=== PATIENT | male | born 1975 | race Caucasian/White ===

== ENCOUNTER 2018-11-06 20:09 | Inpatient (IN) | payer BC, OTHER ==
[~2018-11-06] VITALS: Ht 170.2 cm; Wt 106.6 kg
[~2018-11-06 20:09] MED LIST: GLIPIZIDE; METFORMIN
[2018-11-06] MEDS ORDERED: MORPHINE SULFATE 2 MG/ML CPJ (NOT FOR IM USE) IV PRN (21:45)
[2018-11-06] MEDS ORDERED: MORPHINE SULFATE 4 MG/ML CPJ (NOT FOR IM USE) IV NR (21:45)
[2018-11-06] MEDS ORDERED: VANCOMYCIN 1 G PREMIX 200 ML IV SCH (21:45)
[2018-11-06] MEDS ORDERED: DEXTROSE 50% WATER 50ML SYRINGE IV PRN (21:45)
[2018-11-06] MEDS ORDERED: KETOROLAC 30MG/ML VIAL IV STA (22:19)
[2018-11-06 22:56] LABS: BASOPHILS % 0.5 % (0.0-2.0); EOSINOPHILS % 1.4 % (0.0-5.0); HEMATOCRIT. 39.7 % (42.0-52.0); HEMOGLOBIN. 13.7 g/dL (14.0-18.0); LYMPHOCYTES % 27.8 % (20.0-50.0); MEAN PLATELET VOLUME 7.4 fl (7.4-10.4); MONOCYTES % 9.7 % (2.0-8.0); NEUTROPHILS % 60.6 % (40.0-76.0); PLATELET 232 x1000/uL (130-400); RED BLOOD CELL COUNT 4.41 mill/uL (4.7-6.1); RED CELL DISTRIBUTION WIDTH 12.9 % (11.6-14.6)
[2018-11-06 23:01] LABS: CHLORIDE 100 mEq/L (98-107)
[2018-11-06 23:03] LABS: INR 0.9; PROTHROMBIN TIME 9.5 sec (9.6-11.0)
[2018-11-06] MEDS ORDERED: SODIUM CHLORIDE 0.9% 1,000 ML IV ONE (23:13)
[2018-11-07] MEDS ORDERED: PIPERACILLIN/TAZ 3.375G PREMIX 50 ML IV NR
[2018-11-07] MEDS ORDERED: INSULIN REGULAR (HUMULIN R) 300UNITS/3ML SUBCUT ONE (00:15)
[2018-11-07 01:17] LABS: CLARITY URINE CLEAR (CLEAR); COLOR URINE YELLOW (YELLOW); KETONES URINE NEGATIVE (NEGATIVE); LEUKOCYTE ESTERASE URINE NEGATIVE (NEGATIVE); NITRITE URINE NEGATIVE (NEGATIVE); OCCULT BLOOD URINE NEGATIVE (NEGATIVE); PH URINE 5.5 (4.5-8.0); PROTEIN URINE NEGATIVE (NEGATIVE); SPECIFIC GRAVITY URINE 1.038 (1.005-1.030); UROBILINOGEN URINE 0.2 E.U./dL (0.2-1.0)
[2018-11-07 02:00] VITALS: BP 120/67
[2018-11-07 03:03] VITALS: BP 120/76
[2018-11-07] MEDS ORDERED: SODIUM CHLORIDE 0.9% 1,000 ML IV SCH (03:30)
[2018-11-07] MEDS ORDERED: VANCOMYCIN 1 G PREMIX 200 ML IV SCH (05:00)
[2018-11-07 06:14] LABS: BASOPHILS % 0.5 % (0.0-2.0); EOSINOPHILS % 2.3 % (0.0-5.0); HEMATOCRIT. 36.8 % (42.0-52.0); HEMOGLOBIN. 12.6 g/dL (14.0-18.0); LYMPHOCYTES % 36.5 % (20.0-50.0); MEAN CORPUSCULAR HEMOGLOBIN 30.8 pg (28.0-32.0); MEAN PLATELET VOLUME 7.4 fl (7.4-10.4); MONOCYTES % 9.4 % (2.0-8.0); NEUTROPHILS % 51.3 % (40.0-76.0); PLATELET 204 x1000/uL (130-400); RED BLOOD CELL COUNT 4.09 mill/uL (4.7-6.1); RED CELL DISTRIBUTION WIDTH 13.1 % (11.6-14.6)
[2018-11-07 06:24] LABS: CHLORIDE 105 mEq/L (98-107)
[2018-11-07 06:30] LABS: LDL CHOLESTEROL 79 mg/dL (5-100)
[2018-11-07 06:32] LABS: HDL CHOLESTEROL 32 mg/dL (40-59)
[2018-11-07] MEDS: BLOOD SUGAR DIAGNOSTIC STRIP TEST SCH ×4 (07:38→21:19)
[2018-11-07] MEDS ORDERED: GLIPIZIDE 5MG XL TABLET PO SCH (07:50)
[2018-11-07 08:00] VITALS: BP 115/72
[2018-11-07] MEDS ORDERED: PIPERACILLIN/TAZ 3.375G PREMIX 50 ML IV SCH (08:00)
[2018-11-07] MEDS ORDERED: PIPERACILLIN/TAZOBACTAM 3.375 G in DEXT 5% WATER 100 ML IV SCH (08:00)
[2018-11-07] MEDS: INSULIN LISPRO 100 UNITS/ML SUBCUT SCH ×4 (08:45→21:19)
[2018-11-07] MEDS: METFORMIN HCL 500MG TABLET PO SCH ×2 (08:50→17:17)
[2018-11-07] MEDS: LISINOPRIL 20MG TABLET PO SCH (08:50)
[2018-11-07] MEDS: MORPHINE SULFATE 2 MG/ML CPJ (NOT FOR IM USE) IV PRN ×2 (11:31→20:15)
[2018-11-07 12:00] VITALS: BP 140/96
[2018-11-07] MEDS: HYDROCODONE/ACETAMINOPHEN 5/325MG TABLET PO PRN (15:13)
[2018-11-07 16:00] VITALS: BP 125/90
[2018-11-07] MEDS ORDERED: TETANUS, DIPHTHERIA, PERTUSSIS VAC/PF 0.5ML (>7YR OLD) IM ONE (16:00)
[2018-11-07] MEDS: CEFTRIAXONE 1 G PREMIX 50 ML IV SCH (17:16)
[2018-11-07 20:00] VITALS: BP 112/65
[2018-11-07] MEDS: INSULIN GLARGINE UD 100 UNITS/ML SYR SUBCUT SCH (21:34)
[2018-11-08] VITALS: BP 110/70
[2018-11-08] MEDS: HYDROCODONE/ACETAMINOPHEN 5/325MG TABLET PO PRN ×4 (01:44→19:40)
[2018-11-08 04:00] VITALS: BP 116/66
[2018-11-08] MEDS: BLOOD SUGAR DIAGNOSTIC STRIP TEST SCH ×4 (06:08→21:00)
[2018-11-08 08:00] VITALS: BP 141/89
[2018-11-08] MEDS ORDERED: LIDOCAINE HCL 2%/EPINEPHRINE/PF 10 ML VIAL INFIL ONE (08:30)
[2018-11-08] MEDS ORDERED: ETHYL CHLORIDE CAN TOP NR (08:30)
[2018-11-08] MEDS ORDERED: BUPIVACAINE HCL 0.5% (5MG/ML) 50ML IR NR (08:30)
[2018-11-08] MEDS: METFORMIN HCL 500MG TABLET PO SCH ×2 (08:58→17:08)
[2018-11-08] MEDS: LINAGLIPTIN 5MG TABLET PO SCH (08:59)
[2018-11-08] MEDS: GLIMEPIRIDE 2MG TABLET PO SCH ×2 (08:59→17:08)
[2018-11-08] MEDS: CEFTRIAXONE 1 G PREMIX 50 ML IV SCH (08:59)
[2018-11-08] MEDS: LISINOPRIL 20MG TABLET PO SCH (08:59)
[2018-11-08] MEDS: INSULIN LISPRO 100 UNITS/ML SUBCUT SCH ×4 (09:16→22:08)
[2018-11-08] MEDS: INSULIN GLARGINE UD 100 UNITS/ML SYR SUBCUT SCH ×2 (09:39→22:15)
[2018-11-08] MEDS: MORPHINE SULFATE 2 MG/ML CPJ (NOT FOR IM USE) IV PRN ×2 (10:35→17:08)
[2018-11-08 12:00] VITALS: BP 121/75
[2018-11-08 15:58] VITALS: BP 128/75
[2018-11-08] MEDS ORDERED: VANCOMYCIN 2,000 MG in DEXT 5% WATER 500 ML IV NR (17:00)
[2018-11-08 20:00] VITALS: BP 145/85
[2018-11-08] MEDS ORDERED: MORPHINE SULFATE 2 MG/ML CPJ (NOT FOR IM USE) IV NR (20:30)
[2018-11-08] MEDS ORDERED: MORPHINE SULFATE 2 MG/ML CPJ (NOT FOR IM USE) IV PRN (23:15)
[2018-11-09] VITALS: BP 128/84
[2018-11-09] MEDS: KETOROLAC 30MG/ML VIAL IV PRN ×2 (00:09→09:29)
[2018-11-09] MEDS: VANCOMYCIN 1 G PREMIX 200 ML IV SCH ×2 (02:54→10:08)
[2018-11-09 04:00] VITALS: BP 125/72
[2018-11-09] MEDS: BLOOD SUGAR DIAGNOSTIC STRIP TEST SCH ×2 (07:20→12:20)
[2018-11-09 08:00] VITALS: BP 107/74
[2018-11-09] MEDS: LISINOPRIL 20MG TABLET PO SCH (08:31)
[2018-11-09] MEDS: GLIMEPIRIDE 2MG TABLET PO SCH (08:40)
[2018-11-09] MEDS: LINAGLIPTIN 5MG TABLET PO SCH (08:41)
[2018-11-09] MEDS: METFORMIN HCL 500MG TABLET PO SCH (08:41)
[2018-11-09] MEDS: CEFTRIAXONE 1 G PREMIX 50 ML IV SCH (08:42)
[2018-11-09] MEDS: INSULIN LISPRO 100 UNITS/ML SUBCUT SCH ×2 (08:52→13:24)
[2018-11-09] MEDS: INSULIN GLARGINE UD 100 UNITS/ML SYR SUBCUT SCH (10:12)
[2018-11-09] MEDS ORDERED: HYDROCODONE/ACETAMINOPHEN 10/325MG TABLET PO PRN (10:45)
[2018-11-09] MEDS ORDERED: TRAMADOL 50MG TABLET PO PRN (10:45)
[2018-11-09 12:17] LABS: EOSINOPHILS % 1.5 % (0.0-5.0); HEMATOCRIT. 40.2 % (42.0-52.0); HEMOGLOBIN. 13.6 g/dL (14.0-18.0); LYMPHOCYTES % 23.7 % (20.0-50.0); MEAN CORPUSCULAR HEMOGLOBIN 30.6 pg (28.0-32.0); MEAN CORPUSCULAR VOLUME 90.6 fL (80.0-94.0); MEAN PLATELET VOLUME 7.1 fl (7.4-10.4); MONOCYTES % 5.8 % (2.0-8.0); PLATELET 247 x1000/uL (130-400); RED BLOOD CELL COUNT 4.44 mill/uL (4.7-6.1); RED CELL DISTRIBUTION WIDTH 13.1 % (11.6-14.6)
[2018-11-09 12:24] LABS: CHLORIDE 103 mEq/L (98-107)
[2018-11-09 16:00] VITALS: BP 128/78
[2018-11-09 16:42] VITALS: BP 128/78
[2018-11-09] MEDS ORDERED: INSULIN LISPRO 100 UNITS/ML SUBCUT SCH (17:20)
[2018-11-09] MEDS ORDERED: CEPHALEXIN 250MG CAPSULE PO SCH (18:00)
[2018-11-09] MEDS ORDERED: PREGABALIN 75MG CAPSULE PO SCH (21:00)
[2018-11-09] MEDS ORDERED: SULFAMETHOXAZOLE/TRIMETHOPRIM 800/160MG TABLET PO SCH (21:00)
[2018-11-09] MEDS ORDERED: INSULIN GLARGINE UD 100 UNITS/ML SYR SUBCUT SCH (22:00)
== END 2018-11-09 17:05 | disposition home health service (06) | DRG 580 ==
LOC: ER 20:09 → 6EST 11-07 00:52 → ENRESERV 11-07 01:33 → 6EST 11-08 08:09
PROVIDERS: ADMIT Internal Medicine Critical Care Medicine; ATTEND Internal Medicine Critical Care Medicine
PROC: 0J9Q0ZZ Drainage of Right Foot Subcutaneous Tissue and Fascia, Open Approach (ICD-10-PCS; principal; 2018-11-08)
DX: L02.611 Cutaneous abscess of right foot (principal); L03.115 Cellulitis of right lower limb; E11.9 Type 2 diabetes mellitus without complications; E66.9 Obesity, unspecified; E78.5 Hyperlipidemia, unspecified; I10 Essential (primary) hypertension; Z83.3 Family history of diabetes mellitus; Z79.899 Other long term (current) drug therapy; Z91.14 Patient's other noncompliance with medication regimen; Z79.84 Long term (current) use of oral hypoglycemic drugs; Z68.36 Body mass index [BMI] 36.0-36.9, adult
CPT/HCPCS: 36415; 73630; 73721; 80048; 80061; 81003; 82962; 83036; 87070; 87077; 90715; 96374; 97022; 97162; 99285; J0696; J1815; J1885; J2270; J2543; J3370; J3490; J7030; J7060

== ENCOUNTER 2020-01-26 12:52 | Emergency (ER) | payer BC, OTHER | END 2020-01-26 14:28 | disposition left against medical advice (07) | LOC: ER 12:52 | DX: R68.89 Other general symptoms and signs (principal); Z53.21 Procedure and treatment not carried out due to patient leaving prior to being seen by health care provider ==

== ENCOUNTER → 2021-09-24 | Outpatient (CLI) | payer BC | END | disposition home or self-care (01) | LOC: RAD 12:26 | PROVIDERS: ATTEND Internal Medicine | DX: S61.442A Puncture wound with foreign body of left hand, initial encounter (principal); X58.XXXA Exposure to other specified factors, initial encounter; Y93.89 Activity, other specified; Y92.89 Other specified places as the place of occurrence of the external cause; Y99.8 Other external cause status | CPT/HCPCS: 73120 ==

== ENCOUNTER → 2021-10-29 | Outpatient (CLI) | payer OTHER | END | disposition home or self-care (01) | LOC: MRI 15:34 | PROVIDERS: ATTEND Orthopaedic Surgery | DX: M51.37 Other intervertebral disc degeneration, lumbosacral region (principal); M51.27 Other intervertebral disc displacement, lumbosacral region; M48.07 Spinal stenosis, lumbosacral region; M48.061 Spinal stenosis, lumbar region without neurogenic claudication | CPT/HCPCS: 72148 ==

== ENCOUNTER → 2021-11-23 | Outpatient (CLI) | payer BC | END | disposition home or self-care (01) | LOC: MRI 14:10 | PROVIDERS: ATTEND Orthopaedic Surgery | DX: M25.842 Other specified joint disorders, left hand (principal) | CPT/HCPCS: 73221 ==

== ENCOUNTER → 2023-07-25 | Outpatient (CLI) | payer BC ==
[2023-07-25 07:19] LABS: BASOPHILS % 0.5 % (0.0-2.0); EOSINOPHILS % 2.9 % (0.0-5.0); HEMOGLOBIN. 10.9 g/dL (14.0-18.0); LYMPHOCYTES % 24.2 % (20.0-50.0); MEAN CORPUSCULAR HEMOGLOBIN 29.9 pg (28.0-32.0); MEAN CORPUSCULAR VOLUME 87.9 fL (80.0-94.0); MEAN PLATELET VOLUME 7.4 fl (7.4-10.4); MONOCYTES % 6.6 % (2.0-8.0); NEUTROPHILS % 65.8 % (40.0-76.0); PLATELET 259 x1000/uL (130-400); RED BLOOD CELL COUNT 3.65 mill/uL (4.7-6.1); RED CELL DISTRIBUTION WIDTH 14.3 % (11.6-14.6)
[2023-07-25 07:24] LABS: CHLORIDE 105 mEq/L (98-107); POTASSIUM 5.1 mEq/L (3.5-5.1); SODIUM 135 mEq/L (136-145)
[2023-07-25 07:25] LABS: CALCIUM 9.3 mg/dL (8.7-10.4); CARBON DIOXIDE 26 mEq/L (21-32)
[2023-07-25 07:30] LABS: CREATININE 1.9 mg/dL (0.6-1.3); GLUCOSE 298 mg/dL (70-105); UREA NITROGEN BLOOD 21 mg/dL (9-23)
[2023-07-25 07:32] LABS: ALANINE AMINOTRANSFERASE < 7 IU/L (10-49); ALBUMIN 4.1 g/dL (3.2-4.8); ASPARTATE AMINOTRANSFERASE 15 IU/L (<34); BILIRUBIN TOTAL 0.4 mg/dL (0.1-1.0); PROTEIN TOTAL 6.8 g/dL (6.0-8.3)
== END | disposition home or self-care (01) ==
LOC: LAB 06:43
PROVIDERS: ATTEND Podiatrist Foot & Ankle Surgery
DX: R22.41 Localized swelling, mass and lump, right lower limb (principal)
CPT/HCPCS: 36415; 80053; 85025

== ENCOUNTER → 2023-08-15 | Outpatient (CLI) | payer BC | END | disposition home or self-care (01) | LOC: MRI 15:54 | PROVIDERS: ATTEND Internal Medicine | DX: S46.811A Strain of other muscles, fascia and tendons at shoulder and upper arm level, right arm, initial encounter (principal); S41.012A Laceration without foreign body of left shoulder, initial encounter; M25.712 Osteophyte, left shoulder; M19.011 Primary osteoarthritis, right shoulder; M25.711 Osteophyte, right shoulder; M75.81 Other shoulder lesions, right shoulder; M62.511 Muscle wasting and atrophy, not elsewhere classified, right shoulder; M75.82 Other shoulder lesions, left shoulder; M19.012 Primary osteoarthritis, left shoulder; M75.111 Incomplete rotator cuff tear or rupture of right shoulder, not specified as traumatic; M25.412 Effusion, left shoulder; M25.811 Other specified joint disorders, right shoulder; M65.811 Other synovitis and tenosynovitis, right shoulder; R60.0 Localized edema; X58.XXXA Exposure to other specified factors, initial encounter; Y93.89 Activity, other specified; Y92.89 Other specified places as the place of occurrence of the external cause; Y99.8 Other external cause status | CPT/HCPCS: 73221 ==

== ENCOUNTER 2023-11-01 12:16 | Inpatient (IN) | payer BC ==
[~2023-11-01] VITALS: Ht 170.2 cm; Wt 97.3 kg
[2023-11-01] MEDS: METOCLOPRAMIDE HCL 10MG/2ML VIAL IV ONE (14:00)
[2023-11-01] MEDS: KETOROLAC 30MG/ML VIAL IV STA (14:19)
[2023-11-01 14:23] LABS: BASOPHILS % 0.6 % (0.0-2.0); CHLORIDE 102 mEq/L (98-107); EOSINOPHILS % 0.7 % (0.0-5.0); HEMATOCRIT. 30.5 % (42.0-52.0); LYMPHOCYTES % 17.4 % (20.0-50.0); MEAN CORPUSCULAR HEMOGLOBIN 28.7 pg (28.0-32.0); MEAN CORPUSCULAR VOLUME 87.1 fL (80.0-94.0); MEAN PLATELET VOLUME 8.1 fl (7.4-10.4); MONOCYTES % 6.3 % (2.0-8.0); PLATELET 260 x1000/uL (130-400); POTASSIUM 5.2 mEq/L (3.5-5.1); RED CELL DISTRIBUTION WIDTH 13.4 % (11.6-14.6); SODIUM 132 mEq/L (136-145); WHITE BLOOD COUNT 5.2 x1000/uL (4.5-11.0)
[2023-11-01 14:24] LABS: CARBON DIOXIDE 24 mEq/L (21-32)
[2023-11-01 14:25] LABS: CALCIUM 9.4 mg/dL (8.7-10.4)
[2023-11-01 14:29] LABS: CREATININE 2.2 mg/dL (0.6-1.3); GLUCOSE 171 mg/dL (70-105)
[2023-11-01 14:30] LABS: TROPONIN I HIGH SENSITIVITY 9 ng/L (3.0-53); UREA NITROGEN BLOOD 38 mg/dL (9-23)
[2023-11-01 14:31] LABS: ALANINE AMINOTRANSFERASE < 7 IU/L (10-49); ALBUMIN 4.5 g/dL (3.2-4.8); ASPARTATE AMINOTRANSFERASE 14 IU/L (<34)
[2023-11-01 14:32] LABS: BILIRUBIN TOTAL 0.3 mg/dL (0.1-1.0); PROTEIN TOTAL 7.2 g/dL (6.0-8.3)
[2023-11-01 14:37] LABS: PROTHROMBIN TIME 10.7 sec (9.6-11.0)
[2023-11-01 19:03] LABS: TROPONIN I HIGH SENSITIVITY 11 ng/L (3.0-53)
[2023-11-01] MEDS: HYDRALAZINE 20MG/ML VIAL IV ONE (19:12)
[2023-11-02] VITALS (8 sets, daily range): BP systolic 105–185; BP diastolic 54–81; PULSE 61–80; RESP 12–18; TEMP 36.3918–37.05852; O2SAT 95–99
[2023-11-02] MEDS ORDERED: ATOR20TA65 PO (00:32)
[2023-11-02] MEDS ORDERED: INSU100I53 SUBCUT ×2 (00:32→16:07)
[2023-11-02] MEDS ORDERED: APIX5TAB (00:32)
[2023-11-02] MEDS ORDERED: HYDR100T31 PO (00:32)
[2023-11-02] MEDS ORDERED: AMLO10TA80 PO (00:32)
[2023-11-02] MEDS ORDERED: CLON0.1T PO (00:32)
[2023-11-02] MEDS ORDERED: INSU100I28 SUBCUT (00:32)
[2023-11-02] MEDS ORDERED: LISI40TA13 PO (00:32)
[2023-11-02] MEDS ORDERED: CLONIDINE 0.1MG TABLET PO PRN (01:00)
[2023-11-02] MEDS ORDERED: ZOLPIDEM TARTRATE 5MG TABLET PO PRN (01:00)
[2023-11-02] MEDS ORDERED: DEXTROSE 50% WATER 50ML SYRINGE IV PRN (01:00)
[2023-11-02] MEDS ORDERED: MAGNESIUM/ALUMINUM HYDROXIDE/SIMETHICONE 30ML UDC PO PRN (01:00)
[2023-11-02] MEDS ORDERED: ACETAMINOPHEN 325MG TABLET PO PRN ×2 (01:00)
[2023-11-02] MEDS ORDERED: DIPHENHYDRAMINE 50MG/ML VIAL IV PRN (01:00)
[2023-11-02] MEDS ORDERED: ONDANSETRON HCL 4MG/2ML INJ IV PRN (01:00)
[2023-11-02] MEDS: INSULIN GLARGINE 100 UNITS/ML SUBCUT SCH (01:55)
[2023-11-02] MEDS: HYDRALAZINE 20MG/ML VIAL IV PRN (01:55)
[2023-11-02] MEDS: SODIUM CHLORIDE 0.9% 1,000 ML IV SCH (05:09)
[2023-11-02] MEDS: CLONIDINE 0.2MG TABLET PO SCH (05:09)
[2023-11-02] MEDS: HYDRALAZINE HCL 100MG TABLET PO SCH (05:09)
[2023-11-02] MEDS: BLOOD SUGAR DIAGNOSTIC STRIP TEST SCH (06:10)
[2023-11-02] MEDS: GLIPIZIDE 10MG TABLET PO SCH (06:10)
[2023-11-02 07:46] LABS: BASOPHILS % 0.6 % (0.0-2.0); HEMATOCRIT. 30.2 % (42.0-52.0); LYMPHOCYTES % 20.8 % (20.0-50.0); MEAN CORPUSCULAR HEMOGLOBIN 28.7 pg (28.0-32.0); MEAN CORPUSCULAR VOLUME 87.1 fL (80.0-94.0); MEAN PLATELET VOLUME 7.8 fl (7.4-10.4); NEUTROPHILS % 68.6 % (40.0-76.0); PLATELET 249 x1000/uL (130-400); RED BLOOD CELL COUNT 3.47 mill/uL (4.7-6.1); RED CELL DISTRIBUTION WIDTH 13.2 % (11.6-14.6); WHITE BLOOD COUNT 4.4 x1000/uL (4.5-11.0)
[2023-11-02 08:03] LABS: CALCIUM 9.2 mg/dL (8.7-10.4); POTASSIUM 4.7 mEq/L (3.5-5.1)
[2023-11-02 08:09] LABS: CREATININE 2.1 mg/dL (0.6-1.3)
[2023-11-02 08:16] LABS: HEPATITIS B SURFACE ANTIGEN NEGATIVE (Negative)
[2023-11-02] MEDS: APIXABAN 5 MG TABLET PO SCH (08:20)
[2023-11-02] MEDS: AMLODIPINE 10MG TABLET PO SCH (08:20)
[2023-11-02] MEDS: LINAGLIPTIN 5MG TABLET PO SCH (08:20)
[2023-11-02] MEDS: INSULIN LISPRO 100 UNITS/ML SUBCUT SCH (08:21)
[2023-11-02] MEDS: LISINOPRIL 40MG TABLET PO SCH (08:23)
[2023-11-02 08:37] LABS: HEPATITIS C AB NON REACTIVE (Neg) (Negative)
[2023-11-02] MEDS ORDERED: APIX5TAB PO (16:05)
[2023-11-02] MEDS ORDERED: INSU100I24 SUBCUT (16:07)
[2023-11-02] MEDS ORDERED: ATORVASTATIN CALCIUM 20MG TABLET PO SCH (21:00)
== END 2023-11-02 17:40 | disposition home or self-care (01) | DRG 684 ==
LOC: ER 12:16 → EDBEDREQ 19:05 → EDBEDREQTM 19:05 → 3WST 23:50
PROVIDERS: ADMIT Internal Medicine; ATTEND Internal Medicine
DX: I12.9 Hypertensive chronic kidney disease with stage 1 through stage 4 chronic kidney disease, or unspecified chronic kidney disease (principal); N18.9 Chronic kidney disease, unspecified; E11.22 Type 2 diabetes mellitus with diabetic chronic kidney disease; E11.51 Type 2 diabetes mellitus with diabetic peripheral angiopathy without gangrene; E78.00 Pure hypercholesterolemia, unspecified; R51.9 Headache, unspecified; Z83.3 Family history of diabetes mellitus; Z86.718 Personal history of other venous thrombosis and embolism; Z88.0 Allergy status to penicillin; Z88.2 Allergy status to sulfonamides; Z88.3 Allergy status to other anti-infective agents
CPT/HCPCS: 36415; 71045; 80048; 80053; 82962; 83036; 84484; 85025; 86705; 87340; 93005; 93970; 99291; C1893; J0360; J1815; J1885; J2765; J7030